=== PATIENT | male | born 1970 | race Caucasian/White ===

== ENCOUNTER 2023-09-03 20:37 | Emergency (ER) | payer SELFPAY ==
[~2023-09-03] VITALS: Ht 170.2 cm; Wt 67.1 kg
[2023-09-03 21:12] LABS: HEMOGLOBIN 17.1 g/dL (12.0-18.0); RDW 13.4 (10.5-15.0)
[2023-09-03 21:15] LABS: BASOPHILS 0.5 % (0-2); EOSINOPHILS 0.5 % (0-6); HEMATOCRIT 50.2 % (35.0-50.0); LYMPHOCYTES 20.4 % (24-44); MCH 30.3 (27-36); MCHC 34.2 g/dl (30-36); MCV 88.8 fl (81-99); MONOCYTES 10.1 % (0-12); NEUTROPHILS 68.5 % (39-80); PLATELET COUNT 301 K/uL (140-440); RBC 5.65 M/ul (4.3-5.7)
[2023-09-03] MEDS ORDERED: MORPHINE SULFATE 4 MG/ML VIAL IV ONE (21:15)
[2023-09-03 21:27] LABS: INR 1.12 (0.80-1.30); PROTIME 13.7 Sec (11.2-14.2)
[2023-09-03 21:33] LABS: ALBUMIN 4.1 g/dL (3.4-5.0); ANION GAP 14.6 (7-21); BILIRUBIN, TOTAL 0.7 ng/dL (0.2-1.0); BUN/CREATININE RATIO 17.29 (6.0-28.6); CALCIUM 9.2 mg/dL (8.5-10.1); CREATININE, SERUM 1.33 mg/dL (0.70-1.30); MAGNESIUM 2.2 mg/dL (1.8-2.4); POTASSIUM 3.6 mmol/L (3.5-5.1); PROTEIN, TOTAL 8.2 g/dL (6.4-8.2)
[2023-09-03] MEDS ORDERED: CYCLOBENZAPRINE HCL 10 MG HOME.PACK PO ONE (23:15)
[2023-09-03 23:46] VITALS: BP 182/114
--- NOTE | 2023-09-04 19:06 | EKG ---
[facility] [address] [facility] [place] [address] Signed Normal sinus rhythm with sinus arrhythmia Normal ECG No previous ECGs available Confirmed by Pankaj Roy ([id number]) on 09/04/2023 7:05:51 PM Electronically Signed By: PANKAJ ROY MD 09/04/23 1906 PATIENT NAME: GEETHA GODINEZ Electrocardiogram DATE OF : 66 PHYSICIAN: PANKAJ ROY MD REPORT #: [id number] REPORT IS CONFIDENTIAL AND NOT TO BE RELEASED WITHOUT AUTHORIZATION
== END 2023-09-03 23:48 | disposition home or self-care (01) ==
LOC: ED 20:37
PROVIDERS: Family Medicine
DX: R07.89 Other chest pain (principal)
CPT/HCPCS: 36415; 71045; 80053; 83735; 83880; 84484; 85025; 85379; 85610; 93005; 93010; 96374; 99285-25; J2270